=== PATIENT | male | born 1990 | race Caucasian/White ===

== ENCOUNTER 2023-12-04 10:31 | Emergency (ER) | payer BC | END 2023-12-04 12:45 | disposition home or self-care (01) | LOC: LB.ED 10:31 | DX: S93.601A Unspecified sprain of right foot, initial encounter (principal); X50.1XXA Overexertion from prolonged static or awkward postures, initial encounter; Y93.01 Activity, walking, marching and hiking | CPT/HCPCS: 73600-RT; 73630-RT; 99283 ==